=== PATIENT | female | born 1965 | race Caucasian/White ===

== ENCOUNTER 2017-02-04 21:25 | Emergency (ER) | payer BC ==
[~2017-02-04] VITALS: Ht 177.8 cm; Wt 61.2 kg
[~2017-02-04 21:25] MED LIST: vitamins
[2017-02-04 21:58] VITALS: BP_SYST 169
[2017-02-04 22:59] LABS: BASOPHILS % (AUTO) 0.4 % (0.0-2.0); HEMATOCRIT 50.9 % (36-48); HEMOGLOBIN 16.7 g/dL (12.0-16.0); LYMPHOCYTES # (AUTO) 1.6 K/uL (1.0-5.5); LYMPHOCYTES % (AUTO) 22.7 % (20.5-51.5); MEAN CORPUSCULAR HEMOGLOBIN 31 pg (27-31); MEAN CORPUSCULAR HGB CONC 33 % (32-36); MEAN CORPUSCULAR VOLUME 94 fL (79.0-98.0); MONOCYTES # (AUTO) 0.2 K/uL (0.0-1.0); MONOCYTES % (AUTO) 2.7 % (1.7-9.3); NEUTROPHILS # (AUTO) 5.2 K/uL (1.8-7.7); NEUTROPHILS % (AUTO) 74.2 % (40.0-70.0); PLATELET COUNT (AUTO) 332 K/uL (130-430); RED BLOOD CELL COUNT(AUTO) 5.45 MIL/uL (4.2-6.2); RED CELL DISTRIBUTION WIDTH 11.8 % (9.0-15.0)
[2017-02-04 23:08] LABS: ANION GAP 11 (5-15); CALCIUM 8.4 mg/dL (8.4-11.0); CHLORIDE 104 mmol/L (98-107); CREATININE 0.97 mg/dL (0.55-1.30); GLUCOSE 120 mg/dL (70-99); POTASSIUM 3.6 mmol/L (3.5-5.1); SODIUM SERUM 144 mmol/L (136-145); UREA NITROGEN, BLOOD 16 mg/dL (8-21)
[2017-02-04 23:09] LABS: GFR AFRICAN AMERICAN 77 mL/min (>90)
[2017-02-04] MEDS: FOLIC ACID 1 MG, THIAMINE HCL 100 MG, MAGNESIUM SULFATE 1 GM, MVI 10 ML in NACL 0.9% 1,... IV ONE (23:13)
[2017-02-04 23:15] LABS: ALANINE AMINOTRANSFERASE 47 U/L (12-78); ALBUMIN 4.5 g/dL (3.4-4.8); ASPARTATE AMINOTRANSFERASE 56 U/L (10-37); SALICYLATE 2 mg/dL (3-30); TOTAL BILIRUBIN 0.3 mg/dL (0.0-1.0); TOTAL PROTEIN, SERUM 7.8 g/dL (6.4-8.3)
[2017-02-04 23:16] LABS: ACETAMINOPHEN < 1 ug/mL (1-30)
[2017-02-04] MEDS ORDERED: MVI 10 ML VIAL IV ONE (23:16)
[2017-02-04] MEDS ORDERED: THIAMINE HCL 100 MG/ML VIAL ONE (23:16)
[2017-02-04] MEDS ORDERED: MAGNESIUM SULFATE 1 GM/2 ML VIAL ONE (23:16)
[2017-02-04] MEDS ORDERED: FOLIC ACID 5 MG/ML VIAL IV ONE (23:16)
[2017-02-04] MEDS: HYDROcodone/ACETAMIN 10-325 MG TAB PO ONE (23:22)
[2017-02-04] MEDS: KETOROLAC TROMETHAMINE 60 MG/2 ML VIAL IM ONE (23:22)
[2017-02-04 23:32] LABS: ALCOHOL, BLOOD 348 mg/dL (<10)
[2017-02-05 00:03] LABS: BARBITURATE, URINE NEGATIVE (NEG <=200); BENZODIAZEPINE, URINE NEGATIVE (NEG <=150); CANNABINOID, URINE NEGATIVE (NEG <=50); COCAINE, URINE NEGATIVE (NEG <=150); METHAMPHETAMINES SCREEN,URINE NEGATIVE (NEG <=500); OPIATE, URINE NEGATIVE (NEG <=100); PHENCYCLIDINE SCREEN,URINE NEGATIVE (NEG <=25); UR TRICYCLIC ANTIDEPRESSANTS NEGATIVE (NEG <=300); URINE AMPHETAMINE NEGATIVE (NEG <=500); URINE METHADONE NEGATIVE (NEG <=200); URINE OXYCODONE SCREEN NEGATIVE (NEG <=100); URINE PROPOXYPHENE SCREEN NEGATIVE (NEG <=300)
[2017-02-05 01:05] VITALS: BP_SYST 154
== END 2017-02-05 01:05 | disposition home or self-care (01) ==
LOC: SED 21:25
DX: F10.129 Alcohol abuse with intoxication, unspecified (principal); M54.9 Dorsalgia, unspecified; Z88.1 Allergy status to other antibiotic agents
CPT/HCPCS: 36415; 80053; 80307; 85025; 96365; 99284; G0480; G0481; G0482; J3411; J3475; J3490; J7030; J1885

== ENCOUNTER 2019-09-13 10:54 | Inpatient (IN) | payer BC ==
[~2019-09-13] VITALS: Ht 175.3 cm; Wt 54.4 kg
[2019-09-13 11:19] VITALS: BP_SYST 129
--- NOTE | 2019-09-13 11:27 | NUR ---
Patient to ER bed 8 to gown for evaluation. Side rails up. Report given to REBECA Storm.
--- NOTE | 2019-09-13 11:35 | NUR ---
PT CAME TO ER FOR ETOH AND NECK PAIN. SHE SUFFERS FROM ANXIETY, IS CURRENTLY RESTING IN [facility] ON DENTAL BILLER WITH AT BEDSIDE
[2019-09-13] MEDS ORDERED: NACL 0.9% 1,000 ML IV ONE (11:43)
--- NOTE | 2019-09-13 11:45 | NUR ---
ER at bedside examining patient.
[2019-09-13] MEDS ORDERED: KETOROLAC TROMETHAMINE 30 MG VIAL IVP ONE (12:15)
[2019-09-13] MEDS ORDERED: LORazepam 2 MG/ML VIAL IVP ONE ×3 (12:15→21:45)
[2019-09-13 12:23] LABS: BASOPHILS % (AUTO) 0.5 % (0.0-2.0); HEMATOCRIT 44.7 % (36-48); LYMPHOCYTES # (AUTO) 2.3 K/uL (1.0-5.5); LYMPHOCYTES % (AUTO) 22.6 % (20.5-51.5); MEAN CORPUSCULAR HEMOGLOBIN 32 pg (27-31); MEAN CORPUSCULAR HGB CONC 34 % (32-36); MEAN CORPUSCULAR VOLUME 94 fL (79.0-98.0); MONOCYTES # (AUTO) 0.4 K/uL (0.0-1.0); MONOCYTES % (AUTO) 3.7 % (1.7-9.3); NEUTROPHILS # (AUTO) 7.5 K/uL (1.8-7.7); NEUTROPHILS % (AUTO) 73.2 % (40.0-70.0); PLATELET COUNT (AUTO) 358 K/uL (130-430); RED BLOOD CELL COUNT(AUTO) 4.75 MIL/uL (4.2-6.2); WHITE BLOOD COUNT (AUTO) 10.2 K/uL (4.8-10.8)
[2019-09-13 12:30] LABS: CALCIUM 8.6 mg/dL (8.4-11.0); CREATININE 0.77 mg/dL (0.55-1.30); POTASSIUM 3.4 mmol/L (3.5-5.1)
[2019-09-13 12:35] LABS: TOTAL BILIRUBIN 0.3 mg/dL (0.0-1.0)
--- NOTE | 2019-09-13 13:30 | NUR ---
PT RESTING IN BED COMFORTABLY ON LEATHER STRETCHER
[2019-09-13 14:36] LABS: BILIRUBIN,URINE NEGATIVE (NEGATIVE); BLOOD, URINE 1+ (NEGATIVE); CLARITY/URINE CLEAR (CLEAR); COLOR,URINE YELLOW (YELLOW); GLUCOSE,URINE NEGATIVE (NEGATIVE); KETONES,URINE TRACE (NEGATIVE); LEUKOCYTE ESTERASE ,URINE NEGATIVE (NEGATIVE); NITRITE, URINE NEGATIVE (NEGATIVE); PH,URINE 6.5 (5.0-8.0); PROTEIN URINE 1+ (NEGATIVE); UROBILINOGEN,URINE 0.2 (0.2-1.0)
--- NOTE | 2019-09-13 14:45 | NUR ---
PT RESPONDING APPROPRIATELY TO MEDICATION AFTER ADMINISTRATION
[2019-09-13] MEDS ORDERED: POTASSIUM CHLORIDE 20 MEQ TAB.PRT.SR PO ONE (15:30)
--- NOTE | 2019-09-13 15:38 | NUR ---
Patient will be admitted to care of [facility]. Admitted to TELE unit. Will go to room 116A. Belongings list completed. Complete and up to date summary report printed. SBAR report to be given at bedside with opportunity for questions.
[2019-09-13 15:50] LABS: AMYLASE 91 U/L (0-100); LIPASE 200 U/L (73-393)
[2019-09-13 15:52] LABS: BACTERIA,URINE RARE /HPF (None Seen); CALCIUM OXALATE CRYSTALS,UR 0-10 /HPF (None Seen); MUCUS,URINE 2+ /LPF (None Seen); WBC,URINE 0-3 /HPF (0-3)
[2019-09-13] MEDS ORDERED: chlordiazePOXIDE HCL 25 MG CAPSULE PO ONE (16:00)
[2019-09-13] MEDS ORDERED: ONDANSETRON HCL 4 MG/2 ML VIAL IVP PRN (16:00)
--- NOTE | 2019-09-13 16:00 | NUR ---
admission notes rec patient from er with dx of etoh. asleep but aorusable to stimuli. ivl on the r ac intact. no infiltration noted. resp easy and unlabored. no osb noted. bed to the lowest position and side rails up and locked. call light withn reached.
[2019-09-13 16:05] VITALS: BP_SYST 117
[2019-09-13] MEDS: 0.45% NACL 1,000 ML IV SCH (18:24)
[2019-09-13] MEDS ORDERED: FLU VACC TS2019(65UP)/MF59C/PF 45 MCG/0.5 ML SYRINGE I.M. PRN (19:00)
--- NOTE | 2019-09-13 19:00 | NUR ---
closing notes awaitng for tech to do ultrasound , npo maintained. family at bedside with patient.
--- NOTE | 2019-09-13 19:08 | NUR ---
Paged Dr. Palumbo, Dr. Muniz is environment artist s/w Amy
[2019-09-13] MEDS: HYDROcodone/ACETAMIN 10-325 MG TAB PO PRN (19:52)
[2019-09-13 20:00] VITALS: BP_SYST 124
--- NOTE | 2019-09-13 20:00 | NUR ---
RECEIVED ALERT,ORIENTED. AFEBRILE, NOT IN ACUTE DISTRESS. COMPLAINED OF NECK PAIN (03/22). NORCO 10/325 MG 1 TABLET PO GIVEN (@1950). IV FLUID 1/2 NS INFUSING AT 150 ML/HR VIA RIGHT AC #20 IV LINE. SAO2=95% ON ROOM AIR. SINUS RHYTHM @ 80-90'S/MINUTE ON THE MONITOR. ABDOMINAL ULTRASOUND BEING DONE AT BEDSIDE. PT.AND ARE REQUESTING FOR REGULAR DIET INSTEAD OF THE CLEAR LIQUIDS ORDERED. AWAITING 'S CALL BACK. OTHERWISE VS REMAIN STABLE. WILL CONTINUE TO MONITOR. NEEDS ATTENDED.
--- NOTE | 2019-09-13 20:55 | NUR ---
AGAIN PAGED AND RETURNED CALL, MADE AWARE OF PT'S REQUEST FOR CHANGE IN DIET. REFUSED TO CHANGE DIET. HE SAID HE WILL LEAVE IT UP TO IN THE MORNING. WILL NOTIFY PT.AND .
[2019-09-13] MEDS: chlordiazePOXIDE HCL 25 MG CAPSULE PO SCH (21:15)
--- NOTE | 2019-09-13 21:15 | NUR ---
DUE MEDICATION GIVEN. PT. SAID LIBRIUM DOES NOT WORK FOR HER ANXIETY AND REQUESTED TO GET WHAT SHE GOT IN THE E.R.WHICH IS LORAZEPAM IV. WILL NOTIFY [employer].
--- NOTE | 2019-09-13 21:21 | NUR ---
Paged Flavio s/w Josie
--- NOTE | 2019-09-13 21:27 | NUR ---
AGAIN PAGED, RETURNED CALL. MADE AWARE OF PT'S REQUEST. NEW ORDER GIVEN.
--- NOTE | 2019-09-13 22:08 | NUR ---
ATIVAN 0.5 MG IVP X 1 GIVEN ORDERED.
[2019-09-14] VITALS: BP_SYST 116
--- NOTE | 2019-09-14 | NUR ---
ASLEEP, NOT IN ANY KIND OF DISTRESS. NO PAIN OR DISCOMFORT NOTED AT THIS TIME. SIDE RAILS UP, CALL LIGHT WITHIN REACH. KEPT WARM AND COMFORTABLE. VS REMAIN STABLE. WILL CONTINUE TO MONITOR.
[2019-09-14] MEDS: 0.45% NACL 1,000 ML IV SCH ×2 (00:54→04:36)
--- NOTE | 2019-09-14 01:34 | NUR ---
Consultation Paged Reason for Consultation: ETOH ADDICTION Was consult called: Y Person who was notified: Jennyfer Consulting Physician: Dr. Rowe, Said Boiler Technician Ordering Physician: Dr. Palumbo Face Sheet was faxed to [phone]
--- NOTE | 2019-09-14 02:41 | NUR ---
AWAKE, NO PAIN OR DISCOMFORT NOTED. WILL CONTINUE TO MONITOR.
[2019-09-14] MEDS: HYDROcodone/ACETAMIN 10-325 MG TAB PO PRN (03:59)
--- NOTE | 2019-09-14 03:59 | NUR ---
COMPLAINED OF NECK PAIN. NORCO 10/325 MG 1 TABLET PO GIVEN ORDERED.
--- NOTE | 2019-09-14 06:00 | NUR ---
AWAKE, NO PAIN OR DISCOMFORT NOTED AT THIS TIME. PT. IS AGAIN REQUESTING IF SHE CAN HAVE REGULAR DIET. ATTENDING MD WON'T BE PICKING UP CALL NOT UNTI. AFTER 0700. OFFERED CLEAR LIQUID DIET (JELLO) BUT REFUSED. WILL ENDORSE TO AM SHIFT.
[2019-09-14 07:13] LABS: BASOPHILS % (AUTO) 0.1 % (0.0-2.0); HEMATOCRIT 41.4 % (36-48); HEMOGLOBIN 13.6 g/dL (12.0-16.0); MEAN CORPUSCULAR HEMOGLOBIN 32 pg (27-31); MEAN CORPUSCULAR HGB CONC 33 % (32-36); MEAN CORPUSCULAR VOLUME 96 fL (79.0-98.0); MONOCYTES # (AUTO) 0.5 K/uL (0.0-1.0); MONOCYTES % (AUTO) 6.6 % (1.7-9.3); NEUTROPHILS # (AUTO) 5.3 K/uL (1.8-7.7); NEUTROPHILS % (AUTO) 68.3 % (40.0-70.0); PLATELET COUNT (AUTO) 270 K/uL (130-430); RED BLOOD CELL COUNT(AUTO) 4.32 MIL/uL (4.2-6.2); RED CELL DISTRIBUTION WIDTH 13.6 % (9.0-15.0); WHITE BLOOD COUNT (AUTO) 7.8 K/uL (4.8-10.8)
--- NOTE | 2019-09-14 07:29 | NUR ---
ENDORSED CARE TO AM SHIFT REBECA MOTA.
[2019-09-14 07:35] LABS: ALBUMIN 3.4 g/dL (3.4-4.8); CALCIUM 7.3 mg/dL (8.4-11.0); CREATININE 0.69 mg/dL (0.55-1.30); POTASSIUM 3.5 mmol/L (3.5-5.1); THYROID STIMULATING HORMONE 3.1 uIu/mL (0.36-3.74)
[2019-09-14 07:52] LABS: TOTAL BILIRUBIN 0.9 mg/dL (0.0-1.0)
[2019-09-14 08:19] VITALS: BP_SYST 137
[2019-09-14 08:40] VITALS: BP_SYST 137
[2019-09-14] MEDS ORDERED: FOLIC ACID 1 MG TABLET PO SCH (09:00)
[2019-09-14] MEDS ORDERED: THIAMINE HCL 100 MG TABLET PO SCH (09:00)
[2019-09-14] MEDS ORDERED: FOLI-43 PO (09:17)
[2019-09-14] MEDS ORDERED: LIB25 PO (09:17)
[2019-09-14] MEDS: chlordiazePOXIDE HCL 25 MG CAPSULE PO SCH (09:40)
[2019-09-14] MEDS ORDERED: THIA100T73 PO (09:57)
== END 2019-09-14 10:11 | disposition home or self-care (01) | DRG 897 ==
LOC: SED 10:54 → STU 15:16
PROVIDERS: ADMIT Internal Medicine Cardiovascular Disease; ATTEND Internal Medicine Cardiovascular Disease
DX: F10.120 Alcohol abuse with intoxication, uncomplicated (principal); F32.9 Major depressive disorder, single episode, unspecified; G89.4 Chronic pain syndrome; L40.9 Psoriasis, unspecified; Y90.8 Blood alcohol level of 240 mg/100 ml or more; Z80.0 Family history of malignant neoplasm of digestive organs; Z80.3 Family history of malignant neoplasm of breast; Z87.891 Personal history of nicotine dependence; Z79.899 Other long term (current) drug therapy; Z88.8 Allergy status to other drugs, medicaments and biological substances
CPT/HCPCS: 36415; 71045; 76700-TC; 80053; 81000-TC; 82150-TC; 83690-TC; 83735-TC; 84443-TC; 84484; 85025; 93005; 96361; 96374; 96375; 96376; 99285; G0378; G0482; J1885; J2060; J7030